=== PATIENT | male | born 1975 | race Caucasian/White ===

== ENCOUNTER 2018-10-22 20:09 | Emergency (ER) | payer OTHER ==
[2018-10-22] MEDS ORDERED: ONDANSETRON ODT 4 MG TAB ONE (21:07)
== END 2018-10-22 21:57 | disposition home or self-care (01) ==
LOC: EDH 20:09
DX: J11.1 Influenza due to unidentified influenza virus with other respiratory manifestations (principal); R11.2 Nausea with vomiting, unspecified; Z91.038 Other insect allergy status; Z72.0 Tobacco use
CPT/HCPCS: 87804

== ENCOUNTER 2019-07-03 13:23 | Inpatient (IN) | payer SELFPAY ==
[~2019-07-03] VITALS: Ht 177.8 cm; Wt 104.4 kg
[2019-07-03 14:15] LABS: BASOPHILS % (AUTO) 0.8 % (0.0-5.0); EOSINOPHILS % (AUTO) 1.5 % (0.0-8.0); HEMATOCRIT 46.4 % (42-54); MEAN CORPUSCULAR HEMOGLOBIN 29.4 pg (27.0-33.0); MEAN CORPUSCULAR HGB CONC 33.8 g/dL (32.0-36.0); MONOCYTES % (AUTO) 6.5 % (3.0-13.0); NEUTROPHILS % (AUTO) 73.2 % (40.0-77.0); PLATELET COUNT (AUTO) 329 K/uL (130-400); RED BLOOD CELL COUNT(AUTO) 5.34 MIL/uL (4.50-6.20); RED CELL DISTRIBUTION WIDTH 13.4 % (11.0-15.5); WHITE BLOOD COUNT (AUTO) 13.9 K/uL (4.8-10.8)
[2019-07-03 14:29] LABS: CREATININE 1.1 mg/dL (0.5-1.5); POTASSIUM 3.5 mmol/L (3.5-5.1)
[2019-07-03 14:34] LABS: ALBUMIN 4.1 g/dL (3.5-5.0); BILIRUBIN,TOTAL 0.5 mg/dL (0.2-1.0); TOTAL PROTEIN, SERUM 7.9 g/dL (6.0-8.3)
[2019-07-03 14:39] LABS: CREATINE KINASE, TOTAL 112 U/L (21-232); MYOGLOBIN 70 ng/mL (10-92); TROPONIN I < 0.04 ng/mL (0.00-0.06)
[2019-07-03] MEDS ORDERED: ASPIRIN 325 MG TABLET ONE (14:39)
[2019-07-03] MEDS ORDERED: ONDANSETRON HCL 4 MG/2 ML VIAL IV PRN (17:45)
[2019-07-03] MEDS ORDERED: ACETAMINOPHEN 325 MG TAB PO PRN ×2 (17:45)
[2019-07-03] MEDS ORDERED: GUAIFENESIN-DM 200/20 MG 10 ML PO PRN (17:45)
[2019-07-03] MEDS ORDERED: MAG HYDROX/AL HYDROX/SIMETH ES 30 ML SUSP UDCUP PO PRN (17:45)
[2019-07-03] MEDS ORDERED: LACTULOSE 20 GM/30 ML UDCUP PO PRN (17:45)
[2019-07-03] MEDS ORDERED: HYDRALAZINE HCL 20 MG/ML VIAL IV PRN (17:45)
[2019-07-03] MEDS ORDERED: NITROGLYCERIN 0.4 MG SL TAB SL PRN (17:45)
[2019-07-03] MEDS ORDERED: DIPHENHYDRAMINE HCL 25 MG CAPSULE PO PRN (17:45)
[2019-07-03 18:02] LABS: APPEARANCE,URINE Clear (CLEAR); BILIRUBIN,URINE Small (NEGATIVE); COLOR,URINE Dark Yellow (YELLOW); GLUCOSE, URINE (UA) Negative (NEGATIVE); KETONES,URINE Trace mg/dL (NEGATIVE); LEUKOCYTE ESTERASE ,URINE Trace (NEGATIVE); NITRATE,URINE Negative (NEGATIVE); OCCULT BLOOD,URINE Negative (NEGATIVE); PH,URINE 5.5 (5.0-8.0); PROTEIN,URINE Trace mg/dL (NEGATIVE)
[2019-07-03] MEDS ORDERED: SODIUM CHLORIDE 0.9% 1000ML 1,000 ML IV ONE (18:04)
[2019-07-03 18:09] LABS: AMPHET/METH SCREEN,URINE NEGATIVE (NEGATIVE); BARBITURATE SCREEN, URINE NEGATIVE (NEGATIVE); BENZODIAZEPINES SCREEN,URINE NEGATIVE (NEGATIVE); CANNABINOID SCREEN,URINE POSITIVE (NEGATIVE); COCAINE SCREEN,URINE POSITIVE (NEGATIVE); OPIATE SCREEN,URINE NEGATIVE (NEGATIVE); PHENCYCLIDINE SCREEN,URINE NEGATIVE (NEGATIVE)
[2019-07-03 18:11] LABS: BACTERIA,URINE Few /HPF (None Seen); MUCUS,URINE Moderate LPF (None Seen); RBC,URINE 0-1 /HPF (0-1); SQUAMOUS EPITHELIAL CELL,UR Rare /HPF (0-2)
[2019-07-03 18:12] LABS: HYALINE CASTS, URINE 0-1 /LPF (0-1 /LPF)
--- NOTE | 2019-07-03 18:45 | NUR ---
PT ARRIVES FROM ER ROOM 201.
[2019-07-03 19:05] VITALS: BP 131/75
[2019-07-03] MEDS: FAMOTIDINE 20MG TAB 20 MG TAB PO SCH (20:48)
[2019-07-03] MEDS: SODIUM CHLORIDE 0.9% 1000ML 1,000 ML IV SCH (20:48)
[2019-07-03] MEDS: NITROGLYCERIN 1GM/1 INCH PACKET TD SCH (20:48)
--- NOTE | 2019-07-03 21:00 | NUR ---
ADMIT note: Awake, alert, and oriented x3. Denies any chest pain or shortness of breath. Normal saline at 100cc infusing via 20gauge to right AC, no infiltration noted to site. Instructed to report any chest pain to primary nurse and discussed plan of care, verbalized understanding. Sinus rhythm in 80s with no ectopy. Spouse at bedside.
[2019-07-03] MEDS ORDERED: ESOM40CA PO (21:16)
[2019-07-03 23:22] VITALS: BP 127/70
[2019-07-04] VITALS (7 sets, daily range): BP systolic 127–155; BP diastolic 79–95
[2019-07-04] MEDS: NITROGLYCERIN 1GM/1 INCH PACKET TD SCH (01:32)
[2019-07-04] MEDS: SODIUM CHLORIDE 0.9% 1000ML 1,000 ML IV SCH (03:19)
[2019-07-04 03:56] LABS: HEMATOCRIT 41.7 % (42-54); MEAN CORPUSCULAR HEMOGLOBIN 29.7 pg (27.0-33.0); MEAN CORPUSCULAR HGB CONC 33.4 g/dL (32.0-36.0); MEAN CORPUSCULAR VOLUME 88.8 fL (79-99); NUCLEATED RED BLOOD CELLS 0.1 % (0.0-0.19); PLATELET COUNT (AUTO) 265 K/uL (130-400); RED CELL DISTRIBUTION WIDTH 13.3 % (11.0-15.5); WHITE BLOOD COUNT (AUTO) 7.9 K/uL (4.8-10.8)
[2019-07-04 04:15] LABS: BILIRUBIN,TOTAL 0.1 mg/dL (0.2-1.0); CREATININE 1.1 mg/dL (0.5-1.5); POTASSIUM 3.6 mmol/L (3.5-5.1)
--- NOTE | 2019-07-04 07:30 | NUR ---
ASSESSMENT ENCOUNTERED PT A&OX4, CALM COOPERATIVE AND DOES NOT APPEAR TO BE IN ANY DISTRESS NOR ANY NEURO DEFICITS PRESENT. PT DENIES PAIN, SOB, NAUSEA. PT IS AMBULATORY, GAIT STEADY AND STRONG WITH STAND BY ASSIST. CALL LIGHT WITHIN REACH.
[2019-07-04] MEDS: LISINOPRIL 10 MG TABLET PO SCH (08:22)
[2019-07-04] MEDS: ATORVASTATIN CALCIUM 20 MG TABLET PO SCH (08:22)
[2019-07-04] MEDS: ENOXAPARIN SODIUM 40 MG/0.4 ML SYRINGE SQ SCH (08:22)
[2019-07-04] MEDS: FAMOTIDINE 20MG TAB 20 MG TAB PO SCH ×2 (08:22→21:29)
[2019-07-04] MEDS: ASPIRIN 325 MG TABLET PO SCH (08:23)
[2019-07-04] MEDS ORDERED: NITROGLYCERIN 1GM/1 INCH PACKET TD PRN (10:30)
--- NOTE | 2019-07-04 15:04 | NUR ---
DC PLAN VISITED WITH PATIENT. PATIENT LIVES WITH GIRLFRIEND. PATIENT HAS NO SERVICES OR DME'S. GAVE LOW INCOME CLINIC INFO AND DRUG OD PACKET. SAID HE PLANS TO STOP COKE BUT NOT THC. SAID HE HAS GONE TO [facility] IN THE PAST FOR DEPRESSION BUT STOPPED ABOUT 6 MONTHS AGO. PENDING CARDIO CONSULT. Addendum: 07/04/19 at 1507 by ANA LILIA FRASER RN CM Amended: Links added.
[2019-07-05 03:30] VITALS: BP 135/83
[2019-07-05] MEDS: REGADENOSON 0.4 MG/5 ML PF SYG IVP SCH ×2 (07:15→10:16)
[2019-07-05 07:21] VITALS: BP 139/79
--- NOTE | 2019-07-05 07:30 | NUR ---
ASSESSMENT ENCOUNTERED PT A&OX3, CALM COOPERATIVE AND DOES NOT APPEAR TO BE IN ANY DISTRESS NOR ANY NEURO DEFICITS PRESENT. PT DENIES PAIN, SOB, NAUSEA. PT IS AMBULATORY, GAIT STEADY AND STRONG WITH STAND BY ASSIST. PT IS AMBULATORY, GAIT STEADY AND STRONG WITH STAND BY ASSIST. PT IS NPO FOR PENDING [email or web address]
[2019-07-05] MEDS: FAMOTIDINE 20MG TAB 20 MG TAB PO SCH (09:42)
[2019-07-05] MEDS: LISINOPRIL 10 MG TABLET PO SCH (09:42)
[2019-07-05] MEDS: ATORVASTATIN CALCIUM 20 MG TABLET PO SCH (09:42)
[2019-07-05] MEDS: ASPIRIN 325 MG TABLET PO SCH (09:42)
[2019-07-05] MEDS: ENOXAPARIN SODIUM 40 MG/0.4 ML SYRINGE SQ SCH (09:43)
[2019-07-05 11:00] VITALS: BP 147/86
[2019-07-05 15:18] VITALS: BP 149/91
[2019-07-05] MEDS ORDERED: ASPI-555 PO (16:34)
[2019-07-05] MEDS ORDERED: LISI10TA7 PO (16:34)
[2019-07-05] MEDS ORDERED: ATOR20TA65 PO (16:34)
--- NOTE | 2019-07-05 18:00 | NUR ---
DISCHARGE INSTRUCTIONS GIVEN, PIV REMOVED AND INTACT, DISCUSSED MODIFIABLE CHANGES TO REDUCE RISKS OF MYOCARDIAL INFARCTION AND STROKE THAT INCLUDED, BUT NOT LIMITED TO, SMOKING AND SUBSTANCE ABUSE CESSATION, DIETARY MODIFICATIONS, SEEKING AND ESTABLISHING CONTINUING CARE WITH PRIMARY MD OF CHOICE, DISCHARGED HOME TO FAMILY VEHICLE VIA WHEELCHAIR.
== END 2019-07-05 18:00 | disposition home or self-care (01) | DRG 282 ==
LOC: EDH 13:23 → EDHIP 13:24 → OBSVTOIN 13:24 → 2AH 18:32
PROVIDERS: ADMIT Family Medicine; ATTEND Family Medicine
DX: I21.9 Acute myocardial infarction, unspecified (principal); R03.0 Elevated blood-pressure reading, without diagnosis of hypertension; F17.200 Nicotine dependence, unspecified, uncomplicated; K21.9 Gastro-esophageal reflux disease without esophagitis; R13.10 Dysphagia, unspecified; F14.10 Cocaine abuse, uncomplicated; Z82.49 Family history of ischemic heart disease and other diseases of the circulatory system
CPT/HCPCS: 36415; 71045; 78452; 80053; 80061; 80305; 81001; 82550; 83690; 83874; 84484; 85025; 85027; 93005; 93017; 93306; 96374; A9500; G0378; J1650; J2785; J7030

== ENCOUNTER 2023-08-17 14:00 | Emergency (ER) | payer OTHER ==
[~2023-08-17] VITALS: Ht 177.8 cm; Wt 111.1 kg
[~2023-08-17 14:00] MED LIST: ASPI-556 PO; ATOR20TA65 PO; LISI10TA24 PO
[2023-08-17 18:51] LABS: APPEARANCE,URINE CLEAR (CLEAR); BILIRUBIN,URINE NEGATIVE (NEGATIVE); COLOR,URINE LIGHT-YELLOW (YELLOW); GLUCOSE, URINE (UA) 70 mg/dL (NEGATIVE); KETONES,URINE NEGATIVE (NEGATIVE); LEUKOCYTE ESTERASE ,URINE NEGATIVE Leu/uL (NEGATIVE); NITRATE,URINE NEGATIVE (NEGATIVE); OCCULT BLOOD,URINE NEGATIVE (NEGATIVE); PROTEIN,URINE NEGATIVE (NEGATIVE); UROBILINOGEN,URINE 0.2 mg/dL (0.2-1.0)
[2023-08-17 18:51] LABS: BASOPHILS # (AUTO) 0.09 K/uL (0.00-0.20); BASOPHILS % (AUTO) 0.9 % (0.0-5.0); EOSINOPHILS % (AUTO) 3.9 % (0.0-8.0); HEMATOCRIT 46.5 % (42-54); IMMATURE GRANULOCYTE ABSOLUTE 0.04 K/uL (0-1); LYMPHOCYTES # (AUTO) 3.3 K/uL (1.0-4.8); LYMPHOCYTES % (AUTO) 32.7 % (21.0-51.0); MEAN CORPUSCULAR HEMOGLOBIN 29.2 pg (27.0-33.0); MEAN CORPUSCULAR HGB CONC 33.1 g/dL (32.0-36.0); MEAN CORPUSCULAR VOLUME 88.1 fL (79-99); MONOCYTES # (AUTO) 0.9 K/uL (0.1-1.0); MONOCYTES % (AUTO) 9.2 % (3.0-13.0); NEUTROPHILS # (AUTO) 5.4 K/uL (1.8-7.7); NEUTROPHILS % (AUTO) 52.9 % (40.0-77.0); PLATELET COUNT (AUTO) 327 K/uL (130-400); RED BLOOD CELL COUNT(AUTO) 5.28 MIL/uL (4.50-6.20); RED CELL DISTRIBUTION WIDTH 12.1 % (11.0-15.5); WHITE BLOOD COUNT (AUTO) 10.2 K/uL (4.8-10.8)
[2023-08-17 18:53] LABS: ADD UA MICROSCOPIC YES
[2023-08-17 18:54] LABS: MUCUS,URINE RARE LPF (None Seen); RBC,URINE 0-1 /HPF (0-1)
[2023-08-17 19:02] LABS: CREATININE 1.1 mg/dL (0.5-1.5); POTASSIUM 3.5 mmol/L (3.5-5.1)
[2023-08-17 19:10] LABS: B-TYPE NATRIURETIC PEPTIDE < 5 pg/mL (0-100)
[2023-08-17 19:12] LABS: ALBUMIN 3.7 g/dL (3.5-5.0); BILIRUBIN,TOTAL 0.1 mg/dL (0.2-1.0); TOTAL PROTEIN, SERUM 7.2 g/dL (6.0-8.3)
[2023-08-17] MEDS ORDERED: KETOROLAC 30MG VIAL (30MG/ML) IM ONE (21:00)
[2023-08-17] MEDS ORDERED: METF-444 PO (21:23)
[2023-08-17 21:31] LABS: HEMOGLOBIN A1C 6.5 % (4.0-6.0)
[2023-08-17 21:43] VITALS: BP 149/80; PULSE 69; RESP 16; O2SAT 97
== END 2023-08-17 21:49 | disposition home or self-care (01) ==
LOC: EDH 14:00
DX: R51.9 Headache, unspecified (principal); E11.65 Type 2 diabetes mellitus with hyperglycemia; I10 Essential (primary) hypertension; Z79.82 Long term (current) use of aspirin; Z79.899 Other long term (current) drug therapy
CPT/HCPCS: 99284; 83036; 84484; 80053; 83880; 85025; 81001; 36415; 96372; 93005; J1885